=== PATIENT | female | born 1970 | race Caucasian/White ===

== ENCOUNTER 2019-10-25 14:57 | Emergency (ER) | payer BC, SELFPAY ==
--- NOTE | ~2019-10-25 | CT_ITS ---
EXAMINATION: CT abdomen pelvis w con INDICATION: Right-sided abdominal pain TECHNIQUE: Computed tomographic images of the abdomen and pelvis were obtained after the administrati on of 100 cc of Omnipaque 350 intravenous contrast. The dose-length product (DLP) was 200.97 mGy-cm. Automated exposure control and iterative reconstruction technique were employed. COMPARISON: 03/31/2019 FINDINGS: The lung bases are clear. The heart size is normal. Bilateral breast implants are noted. Th e liver, spleen, pancreas, gallbladder, and adrenal glands are normal. The kidneys are unremarkable. No pathologically enlarged abdominal or pelvic lymph nodes are identified. There is no free intraperi toneal gas or evidence of bowel obstruction. There is mild lumbar spondylosis. IMPRESSION: 1. No CT correlate for the patient's symptoms. Reviewed, dictated and finalized at location A. [employer]
[2019-10-25 15:03] VITALS: BP 133/91; PULSE 106; RESP 16; TEMP 37.1; O2SAT 100
[2019-10-25 16:19] LABS: Basophils Absolute Auto 0.1 K/mm3 (0.0-0.1); Basophils Percent Auto 1.2 % (0.2-1.2); Eosinophils Absolute Auto 0.1 K/mm3 (0-0.3); Eosinophils Percent Auto 1.4 % (0-4.4); Hematocrit 42.5 % (37.0-47.0); Hemoglobin 14.1 g/dL (12.0-15.0); Lymphocytes Absolute Auto 1.64 K/mm3 (0.9-3.2); Lymphocytes Percent Auto 39.3 % (18.3-44.2); Mean Corpuscular HGB Conc 33.2 g/dl (32-36); Mean Corpuscular Hemoglobin 29.3 pg (26-34); Mean Corpuscular Volume 88.2 fl (80-100); Monocytes Absolute Auto 0.3 K/mm3 (0.1-0.6); Neutrophils Absolute Auto 2.1 K/mm3 (1.3-6.7); Neutrophils Percent Auto 51.1 % (45.5-73.1); Platelet Count Result 316 k/mm3 (150-375); Red Blood Count 4.82 M/mm3 (4.2-5.4); Red Cell Distribution Width 12.6 % (11.5-14.5); White Blood Count 4.2 K/mm3 (4.5-10.0)
[2019-10-25 16:20] LABS: Add Urine Microscopic? NO; Appearance Urine Clear (Clear); Bilirubin Urine Negative (Negative); Blood Urine Negative (Negative); Color Urine Straw (Yellow); Glucose Urine UA Negative (Negative); Ketones Urine Negative (Negative); Leukocyte Esterase Ur Negative LEU/UL (Negative); Nitrate Urine Negative (Negative); Protein Urine Negative (Negative); Specific Grav Ur 1.011 (1.001-1.035); Urobilinogen Urine Negative mg/dL (<2.0)
[2019-10-25 16:29] LABS: Alanine Aminotransferase 27 U/L (4-35); Alkaline Phosphatase 48 U/L (38-126); Aspartate Amino Transferase 30 U/L (14-36); Bilirubin,Total 0.7 mg/dL (0.2-1.3); Blood Urea Nitrogen 11 mg/dL (7-17); Calcium 10.1 mg/dL (8.4-10.2); Carbon Dioxide 26 mmol/L (22-30); Chloride 99 mmol/L (98-107); Estimated CRCL calculation 74 ml/min; Estimated Glomerular Filt Rate > 60; Glucose 97 mg/dL (65-105); Sodium 140 mmol/L (137-145)
[2019-10-25 17:32] VITALS: BP 120/87; PULSE 82; RESP 16; O2SAT 100
--- NOTE | 2019-10-25 17:43 | ED.GENADULT ---
HPI - General Adult General Chief complaint: Wound/Laceration <Antonio Moreland PA-C - Last Filed: 10/25/19 21:15> Stated complaint: fever, wound to back <Antonio Moreland PA-C - Last Filed: 10/25/19 21:15> Time Seen by Provider: 10/25/19 15:27 <Antonio Moreland PA-C - Last Filed: 10/25/19 21:15> Source: patient <ROWAN King Last Filed: 10/25/19 21:15> Mode of arrival: ambulatory <Antonio Moreland PA-C - Last Filed: 10/25/19 21:15> Limitations: no limitations <Antonio Morelnad PA-C - Last Filed: 10/25/19 21:15> History of Present Illness HPI narrative: Patient presents with chief complaint of wound reevaluation on her left upper back that has been present for 3 weeks has a cyst but approximately 1 week ago it became erythematous and tender. Patient states that she was started on on Keflex by her primary care 4 days ago, but has not noted improvement. Patient states that she had prior surgery on her back in the area so she does not normally no pain to the area. She states noting pain to the area made her concerned. She reports drainage to the area. Patient also reports pain to the left side of her abdomen. Patient states she has chronic abdominal issues including constipation but she also has a history of diverticulitis and her last bout was 1 month ago. Patient states she was concerned she is having another bout of diverticulitis. Patient states she is on Linzess for chronic constipation so her stools are generally very loose with some mucus. Patient denies any changes to her stools or blood noted. Patient has not had any vomiting. Patient states she has felt warm over the past few days and suspects fever. Patient states that she has lupus so any illnesses concern her her primary care Dr. sales. <Antonio Moreland PA-C - Last Filed: 10/25/19 21:15> Related Data Home medications: Home Medications Medication Instructions Recorded Confirmed cephalexin 10/25/19 dexlansoprazole [Dexilant] mg 10/25/19 dextroamphetamine-amphetamine 10/25/19 linaclotide [Linzess] mcg 10/25/19 <Antonio Moreland PA-C - Last Filed: 10/25/19 21:15> Allergies/adverse reactions: Allergies Allergy/AdvReac Type Severity Reaction Status Date / Time erythromycin base Allergy Severe Anaphylaxis Verified 10/25/19 15:22 [From Erythrocin] CIPROFLOXACIN HCL AdvReac Mild Nausea and Uncoded 10/25/19 15:21 Vomiting <Antonio Moreland PA-C - Last Filed: 10/25/19 21:15> Review of Systems Review of Systems: Narrative: CONSTITUTIONAL: Reports subjective fever, denies chills, or sweats. EYES: Denies visual changes, redness, or discharge. ENT: Denies rhinorrhea, congestion, sore throat, or otalgia. CARDIOVASCULAR: Denies chest pain, palpitations, or edema. RESPIRATORY: Denies cough or dyspnea. GASTROINTESTINAL: Reports abdominal pain, denies nausea, vomiting, changes to stools. GENITOURINARY: Denies dysuria or hematuria. SKIN: Reports wound to back denies rash or itching. MUSCULOSKELETAL: Denies back pain, joint pain, or myalgia. NEUROLOGIC: Denies headache, numbness, dizziness, or weakness. PSYCHIATRIC: Denies anxiety or depression. <Antonio Moreland PA-C - Last Filed: 10/25/19 21:15> PMFSH Social History Social History: Social History Smoking status: Never smoker Alcohol intake: never Gender identity (if verbalized by the patient): Female <Antonio Moreland PA-C - Last Filed: 10/25/19 21:15> Exam Narrative: Exam Narrative: GENERAL: Well-appearing, well-nourished, and in no acute distress. No signs of discomfort noted. HEAD: Normocephalic, atraumatic. EYES: PERRLA and EOMI. ENT: Nares clear, no rhinorrhea or epistaxis. Mucous membranes moist. Oropharynx without tonsillar hypertrophy exudate or other lesions. Bilateral TMs pearly whitaker nonbulging NECK: Supple. No adenopathy or masses. No carotid bruits or JVD CHEST: Clear to auscultation. No respiratory distress. No wh
== END 2019-10-25 18:01 | disposition home or self-care (01) ==
PROVIDERS: Physician Assistant; Emergency Provider Emergency Medicine; PCP Internal Medicine
DX: L03.312 Cellulitis of back [any part except buttock and flank] (principal)
CPT/HCPCS: 36415; 74177; 80053; 81003; 85025; 87070; 87205; 99284; Q9967

== ENCOUNTER 2024-04-20 10:05 | Emergency (ER) | payer OTHER, SELFPAY ==
--- NOTE | 2024-04-20 10:10 | ED.GENADULT ---
HPI - General Adult General Chief complaint: Shortness of Breath/Dyspnea Stated complaint: SOB, right ear pain, head tender..Hx asthma Time Seen by Provider: 04/20/24 10:20 Source: patient, RN notes reviewed and old records reviewed Mode of arrival: ambulatory Limitations: no limitations History of Present Illness HPI narrative: 53-year-old female presents to the [facility] with cough and some shortness breath, reports a history of asthma. Patient also reports right ear discomfort. Was prescribed Diflucan, Augmentin and prednisone on April 09. States that she is still currently on the antibiotic Augmentin but thing she needs more. States that she did not take her prednisone because she seems for when she has a UC flare. States that she does take only when she needs it. Patient states that she started with a cough yesterday and left her inhaler at home. Onset (ago): day(s) (1) Related Data Home Medications Medication Instructions Recorded Confirmed cephalexin 500 mg capsule 500 mg PO Q8-10H for 7 days 10/25/19 04/20/24 dextroamphetamine-amphetamine 30 30 mg PO DAILY 10/25/19 04/20/24 mg tablet linaclotide 290 mcg capsule 290 mcg PO DAILY 10/25/19 04/20/24 (Linzess) Allergies Allergy/AdvReac Type Severity Reaction Status Date / Time erythromycin base Allergy Severe Anaphylaxis Verified 04/20/24 10:09 [From Erythrocin] CIPROFLOXACIN HCL AdvReac Mild Nausea and Uncoded 04/20/24 10:09 Vomiting Review of Systems Review of Systems: All systems reviewed & are unremarkable except as noted in HPI and below Constitutional: Constitutional: Reports no additional constitutional complaints Eyes: Eyes: Reports no additional eye complaints ENT: Reports system reviewed and no additional complaints, except as documented Cardiovascular: Cardiovascular: Reports no additional cardiovascular complaints, Denies chest pain and Denies dyspnea Respiratory: Respiratory: Reports as per HPI, Denies chest congestion, Reports cough and Reports dyspnea Gastrointestinal: Gastrointestinal: Reports no additional gastrointestinal complaints, Denies abdominal pain, Denies nausea and Denies vomiting Musculoskeletal: Musculoskeletal: Reports no additional musculoskeletal complaints Integumentary/Breasts: Skin/Breast: Reports system reviewed and no additional complaints, except as docu Neurologic: Reports system reviewed and no additional complaints, except as documented Psychiatric: Psychiatric: Reports no additional psychiatric complaints Allergic/Immunologic: Allergic/Immunologic: Reports no additional allergic/immunologic complaints PMFSH Past Medical History Medical History De Quervain's tenosynovitis, left Surgical History Surgical History History of breast augmentation Social History Social History Smoking status: Never smoker Alcohol intake: never Gender identity (if verbalized by the patient): Female Comments At the time of my signature, I reviewed and agree with the nursing past medical, surgical, social, and family history. There is no relevant family history pertinent to the patient complaint. Exam Const: General: cooperative, healthy appearing, comfortable, no acute distress, well developed, alert and well nourished Nutritional Appearance: well nourished Orientation/consciousness: patient oriented x3 Limitations: no limitations HENMT: Head: normal to inspection Ears: hearing grossly normal bilaterally, external ears normal, EAC's normal, mastoids normal, no periauricular adenopathy and TM abnormal bulging on the right and wth effusion serous bilateral; not erythematous and with no loss of landmarks Face/Nose/Sinus: Normal external nose present, Normal nares present, Normal nasal mucous membranes and turbinates present, No nasal discharge prese
[2024-04-20 10:20] VITALS: BP 128/85; PULSE 104; RESP 16; TEMP 37.2; O2SAT 100
== END 2024-04-20 10:35 | disposition home or self-care (01) ==
PROVIDERS: Emergency Provider Nurse Practitioner; PCP Internal Medicine
DX: J06.9 Acute upper respiratory infection, unspecified (principal); H65.01 Acute serous otitis media, right ear
CPT/HCPCS: 99213; G0463